=== PATIENT | female | born 1940 | race Caucasian/White ===

== ENCOUNTER 2022-12-29 19:29 | Outpatient (CLI) | payer OTHER, MEDICARE, SELFPAY | END 2022-12-29 19:30 | disposition home or self-care (01) | LOC: AMB 01-01 10:14 | PROVIDERS: Visit Provider Emergency Medicine Emergency Medical Services | DX: S29.9XXA Unspecified injury of thorax, initial encounter (principal); V40.0XXA Car driver injured in collision with pedestrian or animal in nontraffic accident, initial encounter; Y92.410 Unspecified street and highway as the place of occurrence of the external cause | CPT/HCPCS: A0425; A0429 ==